=== PATIENT | male | born 1990 | race Caucasian/White ===

== ENCOUNTER 2017-09-10 18:55 | Emergency (ER) | payer BC ==
--- NOTE | 2017-09-10 19:03 | EDM.PDOC ---
ED HPI GENERAL MEDICAL PROBLEM - General Chief Complaint: Laceration Stated Complaint: SMASHED LT INDEX FINGER Time Seen by Provider: 09/10/17 19:03 Source of Information: Reports: Patient History Limitations: Reports: No Limitations - History of Present Illness INITIAL COMMENTS - FREE TEXT/NARRATIVE: HISTORY AND PHYSICAL: History of present illness: 26-year-old male presenting in the recent department chief complaint of trauma to his left second digit. Patient states that he works for a [employer] and was adjusting weights on the bucket of the [employer]. States that he hooked the chain onto the pocket with the weights that then came loose. While readjusting the chain the switchboard operator inadvertently pulled up causing tension on the chain trapping the distal part of his left second digit between the chain and the bucket. He felt immediate pain and there was a laceration to the inner aspect of the left distal digit. He denies any other trauma. Denies any loss of consciousness. Currently denies any chest pain, palpitations, shortness of breath, syncopal episodes, or focal neurologic episodes. He is not sure when his last tetanus vaccination was. On examination there is significant swelling to the left distal second digit. There is approximately 1 cm x .1 cm laceration from the nail to the inner aspect of the left distal digit. Review of systems: As per history of present illness and below otherwise all systems reviewed and negative. Past medical history: As per history of present illness and as reviewed below otherwise noncontributory. Surgical history: As per history of present illness and as reviewed below otherwise noncontributory. Social history: No reported history of drug or alcohol abuse. Family history: As per history of present illness and as reviewed below otherwise noncontributory. Physical exam: HEENT: Atraumatic, normocephalic, pupils reactive, negative for conjunctival pallor or scleral icterus, mucous membranes moist, throat clear, neck supple, nontender, trachea midline. Lungs: Clear to auscultation, breath sounds equal bilaterally, chest nontender. Heart: S1S2, regular, negative for clicks, rubs, or JVD. Abdomen: Soft, nondistended, nontender. Negative for masses or hepatosplenomegaly. Negative for costovertebral tenderness. Pelvis: Stable nontender. Genitourinary: Deferred. Rectal: Deferred. Extremities: See above, negative for cords or calf pain. Neurovascular unremarkable. Neuro: Awake, alert, oriented. Cranial nerves II through XII unremarkable. Cerebellum unremarkable. Motor and sensory unremarkable throughout. Exam nonfocal. Diagnostics: Left second digit x-ray Therapeutics: DTaP Impression: Laceration Plan: There is an acute fracture of the index finger distal phalanx tuft on x-ray. Using 3 mL of 1% lidocaine digital block was performed successfully of the left second digit. Using 2 vertical mattress sutures laceration was approximated. Of note tissue was very friable secondary to traumatic crushing and was difficult to approximate edges. A brace was placed and finger was florencia taped. Patient was given instructions to follow plastic/hand surgeon as soon as possible. He was discharged in good condition and told to return emergency room if he any new or worsening symptoms. Definitive disposition and diagnosis as appropriate pending reevaluation and review of above. left index finger Pain Score (Numeric/FACES): 8 - Related Data Allergies Allergy/AdvReac Type Severity Reaction Status Date / Time No Known Allergies Allergy Verified 09/10/17 19:10 Home Meds: Home Meds . [No Known Home Meds] 09/10/17 [History] ED ROS GENERAL - Review of Systems Review Of Systems: ROS reveals no pertinent complaints other than HPI. ED EXAM, SKIN/RASH Exam: See Below Course - Vital Signs Last Recorded V/S: Last Vital Signs Temp 98 F 09/10/17 19:00 Pulse 74 09/10/17 19:00 Resp 16 09/10/17 19:00 BP 145/100 H 09/10/17 19:00 Pulse Ox 97 09/10/17 19:00 - Orders/Labs/Meds Orders: Active Orders 24 hr Category Date Time Status Vaccines to be Administered [RC] PER UNIT ROUTINE Care 09/10/17 19:11 Active Fingers Second Digit Lt F1 [CR] Stat Exams 09/10/17 19:11 Ordered Meds: Medications Discontinued Medications Generic Name Dose Route Start Last Admin Trade Name Freq PRN Reason Stop Dose Admin Diphtheria/Tetanus/Acell Pertussis 0.5 ml 09/10/17 19:11 09/10/17 19:18 Adacel IM 09/10/17 19:12 0.5 ml .ONCE ONE Administration Lidocaine HCl 5 ml 09/10/17 19:22 Xylocaine-Mpf 1% INJECT 09/10/17 19:23 ONETIME ONE Departure - Departure Time of Disposition: 20:39 Disposition: Home, Self-Care 01 Condition: Good Clinical Impression: Open fracture of distal phalanx of digit of left hand - Discharge Information Referrals: PCP,None [Primary Care Provider] - Forms: ED Department Discharge Additional Instructions: My general discharge The following information is given to patients seen in the emergency department who are being discharged to home. This information is to outline your options for follow-up care. We provide all patients seen in our emergency department with a follow-up referral. The need for follow-up, as well as the timing and circumstances, are variable depending upon the specifics of your emergency department visit. If you don't have a primary care physician on staff, we will provide you with a referral. We always advise you to contact your personal physician following an emergency department visit to inform them of the circumstance of the visit and for follow-up with them and/or the need for any referrals to a consulting specialist. The emergency department will also refer you to a specialist when appropriate. This referral assures that you have the opportunity for follow-up care with a specialist. All of these measure are taken in an effort to provide you with optimal care, which includes your follow-up. Under all circumstances we always encourage you to contact your private physician who remains a resource for coordinating your care. When calling for follow-up care, please make the office aware that this follow-up is from your recent emergency room visit. If for any reason you are refused follow-up, please contact the [facility] Emergency Department at and asked to speak to the emergency department charge nurse. [facility] [address] [place] [address], [address] [place] [address] Please call and schedule appointment with the plastic/hand surgeon above. Sure to tell them are seen in the emergency department have a fracture of your left second distal digit. Return emergency department if any new or worsening symptoms. - My Orders Last 24 Hours: My Active Orders 09/10/17 19:11 Vaccines to be Administered [RC] PER UNIT ROUTINE Fingers Second Digit Lt F1 [CR] Stat - Assessment/Plan Last 24 Hours: My Active Orders 09/10/17 19:11 Vaccines to be Administered [RC] PER UNIT ROUTINE Fingers Second Digit Lt F1 [CR] Stat
[2017-09-10] MEDS ORDERED: Diphtheria,Pertussis(Acell),Tetanus Vaccine 0.5 ML Syringe IM ONE (19:11)
[2017-09-10] MEDS ORDERED: Ketorolac 60 MG/2 ML SDV IM ONE (19:31)
--- NOTE | 2017-09-11 09:50 | CR ---
EXAM DATE: 09/10/17 PATIENT'S AGE: 26 Patient: KENROY YANG Facility: [place], [place] Site . Site : 1988 Study: XRay Extremity Left 2nd digit [id number]/[id number] 7:30:07 PM Ordering Physician: Dk Cuevas Final Report: HISTORY: Second digit crush injury. TECHNIQUE: Left index finger 3 views. COMPARISON: None. FINDINGS: Acute transverse fracture of the tuft of the 2nd distal phalanx. Tuft fragment is mildly radially and volarly displaced. Small amount of soft tissue gas in the distal index finger. Distal index finger soft tissue swelling. Joint spaces are maintained. Bones are otherwise intact. IMPRESSION: Acute fracture of the index finger distal phalanx tuft with soft tissue swelling and small amount of soft tissue gas. Dictated by Kip Aragon MD @ Sep 10 2017 7:47PM (Electronic Signature) Report Signed by Proxy. ELADIO
== END 2017-09-10 21:02 | disposition home or self-care (01) ==
LOC: MW.ED 18:55
DX: S62.631B Displaced fracture of distal phalanx of left index finger, initial encounter for open fracture (principal); W23.0XXA Caught, crushed, jammed, or pinched between moving objects, initial encounter; Z23 Encounter for immunization
CPT/HCPCS: 12001; 73140; 90471; 90715; 99283; J1885

== ENCOUNTER 2019-01-23 21:09 | Emergency (ER) | payer BC, OTHER ==
[2019-01-23] MEDS ORDERED: Tetracaine HCl/PF 0.5% 4 ML Bottle EYELF ONE (21:26)
--- NOTE | 2019-01-23 21:49 | EDM.PDOC ---
ED HPI GENERAL MEDICAL PROBLEM - General Chief Complaint: Eye Problems Stated Complaint: EYE INJURY Time Seen by Provider: 01/23/19 21:22 Source of Information: Reports: Patient History Limitations: Reports: No Limitations - History of Present Illness INITIAL COMMENTS - FREE TEXT/NARRATIVE: HISTORY AND PHYSICAL: History of present illness: Patient is a 28-year-old male who presents to the ED today with concern of left eye pain since this afternoon. Patient states he was dusting the house and felt like he got dust in his left eye and since then has had left eye discomfort. Patient denies any changes in his vision or any other associated symptoms. Patient states he did rinse his eye out with water for approximately 15 minutes before coming to the ED. Patient denies any other symptoms or concerns. Patient states he does not wear glasses or contacts. Patient denies fever, chills, chest pain, shortness of breath, or cough. Denies headache, neck stiff ness, change in vision, syncope, or near syncope. Denies nausea, vomiting, abdominal pain, diarrhea, constipation, or dysuria. Has not noted any blood in urine or stool. Patient has been eating and drinking appropriately. Review of systems: As per history of present illness and below otherwise all systems reviewed and negative. Past medical history: As per history of present illness and as reviewed below otherwise noncontributory. Surgical history: As per history of present illness and as reviewed below otherwise noncontributory. Social history: See social history for further information Family history: As per history of present illness and as reviewed below otherwise noncontributory. Physical exam: General: Patient is alert, oriented, and in no acute distress. Patient sitting comfortably on exam table. HEENT: Atraumatic, normocephalic, pupils equal and reactive bilaterally, negative for conjunctival pallor or scleral icterus, mucous membranes moist, TMs normal bilaterally, throat clear, neck supple, nontender, trachea midline. No drooling or trismus noted. No meningeal signs. No hot potato voice noted. Visual acuity intact. EOMS intact without pain. The left eye is injected and watering. Tonopen pressures 17, 18, and 19 with 3 measurements. Fluorescein stain was used to evaluate the cornea. No obvious corneal abrasions or foreign body in the eye. Lids were everted without evidence of foreign body. Lungs: Clear to auscultation, breath sounds equal bilaterally, chest nontender. Heart: S1S2, regular rate and rhythm without overt murmur Abdomen: Soft, nondistended, nontender. Negative for masses or hepatosplenomegaly. Negative for costovertebral tenderness. Pelvis: Stable nontender. Genitourinary: Deferred. Rectal: Deferred. Skin: Intact, warm, dry. No lesions or rashes noted. Extremities: Atraumatic, negative for cords or calf pain. Neurovascular unremarkable. Neuro: Awake, alert, oriented. Cranial nerves II through XII unremarkable. Cerebellum unremarkable. Motor and sensory unremarkable throughout. Exam nonfocal. Notes: Discussed the importance for follow-up with the paraffiner. Voices understanding and is agreeable to plan of care. Denies any further questions or concerns at this time. Diagnostics: Fluorescence stain with chaya jhaveri Therapeutics: Tetracaine ophthalmic Prescription: Polytrim ophthalmic Impression: Left eye pain Plan: 1. Take medication as prescribed. You can alternate ibuprofen and Tylenol as directed for pain and discomfort. 2. Follow-up with the paraffiner as discussed. Return to the ED as needed and as discussed. Definitive disposition and diagnosis as appropriate pending reevaluation and review of above. Left Eye Pain Score (Numeric/FACES): 5 - Related Data Allergies Allergy/AdvReac Type Severity Reaction Status Date / Time No Known Allergies Allergy Verified 01/23/19 21:20 Home Meds: Home Meds Polymyxin B/Trimethoprim [PolyTrim Ophth Soln] 1 drop OP Q3HR 10 Days #1 bottle 01/23/19 [Rx] Past Medical History - Past Health History Medical/Surgical History: Denies Medical/Surgical History - Infectious Disease History Infectious Disease History: Reports: Chicken Pox Social & Family History - Family History Family Medical History: Noncontributory - Tobacco Use Smoking Status *Q: Never Smoker Second Hand Smoke Exposure: No - Caffeine Use Caffeine Use: Reports: Coffee, Soda - Recreational Drug Use Recreational Drug Use: No ED ROS GENERAL - Review of Systems Review Of Systems: Comprehensive ROS is negative, except as noted in HPI. ED EXAM GENERAL W FULL EYE - Physical Exam Exam: See Below (see dictation) Course - Vital Signs Last Recorded V/S: Last Vital Signs Temp 98.0 F 01/23/19 21:52 Pulse 72 01/23/19 21:52 Resp 18 01/23/19 21:52 BP 123/73 01/23/19 21:52 Pulse Ox 97 01/23/19 21:52 - Orders/Labs/Meds Meds: Medications Discontinued Medications Generic Name Dose Route Start Last Admin Trade Name Miguel PRN Reason Stop Dose Admin Tetracaine HCl 1 ml 01/23/19 21:26 Tetracaine 0.5% Steri-Unit Flavia EYELF 01/23/19 21:27 ASDIRECTED ONE Departure - Departure Time of Disposition: 21:47 Disposition: Home, Self-Care 01 Clinical Impression: Eye pain Qualifiers: Laterality: left Qualified Code(s): H57.12 - Ocular pain, left eye - Discharge Information Prescriptions: Polymyxin B/Trimethoprim [PolyTrim Ophth Soln] 1 drop OP Q3HR 10 Days #1 bottle Instructions: Eye Foreign Body, [id number] Referrals: PCP,None [Primary Care Provider] - Forms: ED Department Discharge Additional Instructions: The following information is given to patients seen in the emergency department who are being discharged to home. This information is to outline your options for follow-up care. We provide all patients seen in our emergency department with a follow-up referral. The need for follow-up, as well as the timing and circumstances, are variable depending upon the specifics of your emergency department visit. If you don't have a primary care physician on staff, we will provide you with a referral. We always advise you to contact your personal physician following an emergency department visit to inform them of the circumstance of the visit and for follow-up with them and/or the need for any referrals to a consulting specialist. The emergency department will also refer you to a specialist when appropriate. This referral assures that you have the opportunity for follow-up care with a specialist. All of these measure are taken in an effort to provide you with optimal care, which includes your follow-up. Under all circumstances we always encourage you to contact your private physician who remains a resource for coordinating your care. When calling for follow-up care, please make the office aware that this follow-up is from your recent emergency room visit. If for any reason you are refused follow-up, please contact the [facility] Emergency Department at and asked to speak to the emergency department charge nurse. [facility] [address] [place] [address] [facility], Ophthalmology [address] [place] [address] 1. Take medication as prescribed. You can alternate ibuprofen and Tylenol as directed for pain and discomfort. 2. Follow-up with the paraffiner as discussed. Return to the ED as needed and as discussed. Sepsis Event Note - Evaluation Sepsis Screening Result: No Definite Risk - Focused Exam Vital Signs: Vital Signs Temp Pulse Resp BP Pulse Ox 01/23/19 21:52 98.0 F 72 18 123/73 97 01/23/19 21:21 98.7 F 73 16 121/82 97 Date Exam was Performed: 01/23/19 Time Exam was Performed: 21:58
== END 2019-01-23 21:50 | disposition home or self-care (01) ==
LOC: MW.ED 21:09
DX: H57.12 Ocular pain, left eye (principal)
CPT/HCPCS: 99283